=== PATIENT | male | born 1930 | race Caucasian/White ===

== ENCOUNTER 2019-03-06 16:22 | Inpatient (IN) | payer OTHER ==
[~2019-03-06] VITALS: Ht 177.8 cm; Wt 71.8 kg
[2019-03-06 16:24] VITALS: BP 153/68
[2019-03-06] MEDS ORDERED: ZYPREXA2.5 MG PO (16:57)
[2019-03-06] MEDS ORDERED: PROAIR HFA8.5 GM INH (17:00)
[2019-03-06] MEDS ORDERED: TYLENOL PM EX-1 EACH PO (17:00)
[2019-03-06] MEDS ORDERED: COLACE 2-IN-11 EACH PO (17:01)
[2019-03-06] MEDS ORDERED: LASIX 40 MG TAB40 MG PO (17:06)
[2019-03-06] MEDS ORDERED: MELATONIN3 M1 PO (17:07)
[2019-03-06] MEDS ORDERED: METFORMIN HCL500 M3 PO (17:07)
[2019-03-06] MEDS ORDERED: NAPROSYN500 MG PO (17:08)
[2019-03-06] MEDS ORDERED: PROTONIX40 M2 PO (17:08)
[2019-03-06] MEDS ORDERED: MIRALAX119 GM PO (17:08)
[2019-03-06] MEDS ORDERED: RANEXA1000 MG PO (17:09)
[2019-03-06] MEDS ORDERED: ULTRAM 50MG TAB50 MG PO (17:11)
[2019-03-06] MEDS ORDERED: NORVASC 2.5 MG2.5 M1 PO (17:12)
[2019-03-06] MEDS ORDERED: PLAVIX 75 MG TA75 MG PO (17:12)
[2019-03-06] MEDS ORDERED: FOLIC ACID1 MG PO (17:12)
[2019-03-06] MEDS ORDERED: LIPITOR40 MG PO (17:12)
[2019-03-06] MEDS ORDERED: CLARITIN10 M3 PO (17:13)
[2019-03-06] MEDS ORDERED: HYDRALAZINE 10M10 MG PO (17:13)
[2019-03-06 17:37] LABS: HEMATOCRIT 34.5 % (42.0-52.0); HEMOGLOBIN 11.3 gm/dL (14.0-18.0); MCH 32.7 pg (26.0-34.0); MCHC 32.9 g/dL (28.0-37.0); MCV 99.6 fL (80.0-100.0); PLATELET COUNT 215 thou/uL (150-400); RBC 3.47 mil/uL (4.50-6.00); WBC 6.2 thou/uL (4.0-11.0)
[2019-03-06 17:49] LABS: ANION GAP 8 mmol/L (7-16); BUN 37 mg/dL (7-18); CALCIUM 9.4 mg/dL (8.5-10.1); CHLORIDE 102 mmol/L (98-107); CO2 25 mmol/L (21-32); GLUCOSE 152 mg/dL (74-106); POTASSIUM 4.7 mmol/L (3.5-5.1); SODIUM 135 mmol/L (136-145)
[2019-03-06 17:56] LABS: ALBUMIN 4.1 g/dL (3.4-5.0); SALICYLATE < 2.8 mg/dL (2.8-20.0); SGOT 22 U/L (15-37); SGPT 21 U/L (30-65); TOTAL BILIRUBIN 0.5 mg/dL (<0.1-1.0); TOTAL PROTEIN 7.9 g/dL (6.4-8.2)
[2019-03-06 18:02] LABS: ABSOLUTE NEUTROPHILS 4.4 thou/uL (1.4-8.2); ANISOCYTOSIS 1+; POIKILOCYTOSIS 1+
[2019-03-06 18:10] LABS: URINE BILIRUBIN NEGATIVE (Negative); URINE BLOOD NEGATIVE (Negative); URINE CLARITY CLEAR; URINE COLOR YELLOW; URINE GLUCOSE-RANDOM* TRACE (Negative); URINE KETONES NEGATIVE (Negative); URINE LEUKOCYTES-REFLEX NEGATIVE (Negative); URINE NITRITE-REFLEX NEGATIVE (Negative); URINE PROTEIN (DIPSTICK) NEGATIVE (Negative); URINE SPECIFIC GRAVITY 1.025 (1.005-1.035); URINE UROBILINOGEN 0.2 E.U./dl (0.2-1.0)
[2019-03-06 18:18] LABS: AMP/METHAMP Negative (Negative); BARBITURATES Negative (Negative); BENZODIAZEPINES Negative (Negative); COCAINE Negative (Negative); METHADONE Negative (Negative); OPIATES Negative (Negative); PCP Negative (Negative)
[2019-03-06 19:30] VITALS: BP 150/72
[2019-03-06] MEDS ORDERED: TRAZODONE HCL100 MG PO (20:23)
[2019-03-06] MEDS ORDERED: IMDUR 60 MG TAB60 M1 PO (20:23)
--- NOTE | 2019-03-06 21:52 | NUR ---
Patient admitted from [facility] ED via stretcher for eval and tx due to bizarre behaviors, sexually inappropriate, insomnia, and diagnosis of Alzheimer's disease. Patient was residing with his in private home until December 2018. Patient [facility] [place] at that time. Patient's Niya reported that she couldn't take care of patient at home any longer. Patient has difficulty making it to the bathroom and has frequent episodes of incontinence. Patient has been wandering into other resident's rooms, removing clothing, yelling at unseen others. Patient becoming combative when staff attempts to help him dress. Appears that MMSE was completed in which he scored 9/30 and was recently diagnosed with Alzheimers/Dementia. Recommendation from facility noted for him to be placed in a secure unit. Living will and DPOA paperwork in chart. Patient is a DNR. Appears that medications have been recently changed to help patient's insomnia and behaviors but has not been effective. Dr. Taylor notified of admission and orders obtained and noted. Patient was combative when arriving to the unit. Alert and oriented to person only. Unable to state birthdate. Unaware of location, time or situation. Family reports that patient has had multiple falls over the last 30 days. Patient has multiple bruises at different stages of healing located on right buttock/hip, left knee and left side of forehead. Skin shear observed to left forearm. Dressing applied. Order obtained for PT/OT to eval and tx. Family reports that patient has been having difficulty with vision. Reports that he typically wears glasses but they are lost at this time. Patient wears upper and lower dentures which are in at this time. Patient attempted to stand up out of bed with staff present and urinated on the floor. Combative with staff as they were trying to change his clothing and clean him. Patient has disorganized speech, difficulty understanding one step directions. Family reports that patient is hard of hearing and does not have hearing aides at this time. Family denies any recent weight loss. Weight 169# at this time which reports is his usual weight. Patient primarily ambulates with FWW prior to admission. Gait unsteady, balance is poor, patient has poor impulse control. Will provide w/c until PT can eval. Patient took HS medication whole but did attempt to chew most medication and did not comprehend the idea of swallowing medication. Patient has an extensive medical history. Patient provided PRN Zyprexa this evening for patient and staff safety. Patient laying in bed at this time but continues to talk disorganized speech to unseen others. No s/s of pain or discomfort noted.
[2019-03-07 05:58] VITALS: BP 160/60
--- NOTE | 2019-03-07 15:27 | EKG ---
[address] [place] [address] ELECTROCARDIOGRAM REPORT Name: VIVIEN TOM Room #: 523B-B ADM IN M.R.#: [id number] Admission: 03/06/19 Attend Phys: Jerzy Dave DO Discharge: Date of : [birth year] Report #: [id number] THIS REPORT FOR: //name// 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
[2019-03-07 15:36] LABS: CALCIUM 8.7 mg/dL (8.5-10.1); CREATININE 1.7 mg/dL (0.7-1.3); POTASSIUM 4.3 mmol/L (3.5-5.1)
[2019-03-07 15:40] LABS: MAGNESIUM 1.9 mg/dL (1.8-2.4); PHOSPHORUS 3.5 mg/dL (2.5-4.9)
--- NOTE | 2019-03-07 16:59 | NUR ---
SVETLANA met with pt's , daughter, and granddaughter. He currently resides at [facility], and his family would like him to be placed elsewhere for memory care because it is their belief the facility cannot meet their needs; they only have 1-2 staff for 14 patients. They are okay with him being placed in [facility]; he currently sees a doctor at [facility] on the [employer]. SVETLANA reviewed chart and saw that has a financial DPOA and not healthcare. SVETLANA explained that could pose as an issue for placement if the facility wants specifically a healthcare DPOA. Pt's said she understands. The would like him to remain on the [place] side. SW team will continue to follow pt during his stay on this unit.
--- NOTE | 2019-03-07 18:09 | NUR ---
[facility] THIS AM BUT SLEPT ALMOST ENTIRE TIME-,GRANDAUGHTER AND DAUGHTER AT BEDSIDE DURING AM VISITING AND DID CONVERSE WITH THEN 1-2 WORD RESPONSES OTHERSWISE MINIMAL NO VERBAL INTERACTION WITH STAFF-KEEPS EYES TIGHTLY CLOSED AND WHEN TOUCHED OR REPOSITIONED WILL STRIKE OUT OR YELL OUT. IS ABLE TO STATE HIS FIRST NAME WHEN PROMPTED OTHERWISE OFFERS NO RESPONSES TO QUESTIONS ASKED. TAKES MEDS CRUSHED AND IN PUDDING OR YOGURT-UNABLE TO CRUSH CARDIAC MEDS IMDUR AND RANOLIZNE AND APPEARED TO SWALLOW ALL THIS AM-LATER FOUND 1 RANOLAZINE PILL IN BEDDING. INCONTINENT OF LARGE AMOUNT OF URINE ON FLOOR NEXT TO BED-ALSO INCONTINENT OF URINE IN BRIEF AND REMOVED BRIEF AND PJ BOTTOMS. EKG COMPLETED PER MD ORDER RESULTS CALLED TO DR. KUN DANG GENERATOR REBUILDER AND SEEN BY DR. RAMIREZ WHILE ROUNDING ON PT. DPOA CONTACTED ON DNR STATUS CONFIRMED BY MD. COLOR PALE-SKIN WARM AND DRY-IS RESPONSIVE TO VERBAL STIMULI HOWEVER REMAINS LETHARGIC. BP 136/60 P 70 02 SAT 95 PERCENT
--- NOTE | 2019-03-07 18:54 | NUR ---
DID SIT UP IN BED FOR THIS RN-ALLOW VS TO BE TAKEN AFTER SOME INITAL SWEARING AND STRIKING OUT BP 137/55 P 61 R-14 02 SAT 95 PERCENT ON RA. TOOK APPROX 2 CONTAINERS OF YOGURT AND 1 CONTAINER OF ICE CREAM ALONG WITH APPROX 250 CC WATER WITH MUCH PROMPTING/ENCOURAGEMENT. DID OPEN EYES X1 DURING 40 MINUTE INTERACTION- WHEN ASKED ABOUT PAIN NOTED TO BE GRIMACING WITH MOVEMENT STATES "MY HIP" HOWEVER DOES NOT RESPOND AGAIN WHEN ASKED WHICH HIP OR TO RATE PAIN. TYLENOL 650MG PO PRN FOR ABOVE REPORTD AT 1845
[2019-03-07 20:09] VITALS: BP 136/53
--- NOTE | 2019-03-08 04:37 | NUR ---
ASSUMED CARE ON 03/07/19 @ 19:15. IN BED AWAKENS TO VOICE, COOPERATED WITH ASSESSMENT AND VS. HRRR, S1S2 NOTED, LUNGS CTA, ABD N X 4 Q. INCONTINENT OF URINE, CUSSING AND SOME STRIKING OUT WITH FIST WHEN GIVEN INCONTINENT CARE X 2 STAFF. SHEETS & BEDDING CHANGED. AFTER CLEAN AND DRY IN CLEAN SHEETS, CALMED DOWN AND RETURNED TO SLEEP. BED IN LOW POSITION, BED ALARM SET, WILL CONTINUE TO MONITOR Q 12 MINUTES FOR PATIENT SAFETY.
--- NOTE | 2019-03-08 06:30 | NUR ---
SLEPT 8 HOURS
[2019-03-08 06:38] VITALS: BP 136/53
[2019-03-08 09:06] VITALS: BP 145/89
--- NOTE | 2019-03-08 09:17 | NUR ---
SW called and left a VM to complete the admissions intake
[2019-03-08 11:54] VITALS: BP 145/89
--- NOTE | 2019-03-08 13:22 | NUR ---
PT NOT APPROPRIATE FOR P.T. EVAL AT THIS TIME. DR. TRISTAN INDICATED PLAN TO CX P.T. ORDER IN PT'S EMR.
--- NOTE | 2019-03-08 15:34 | NUR ---
ASSUMED CARE AT 0700 THIS MORNING. PT. UP IN W/C. PT. LOWERED HIMSELF TO THE FLOOR AND WAS CRAWLING ON THE FLOOR. STAFF GOT RECLINING CHAIR AND PUT PT. IN IT. PT. HAD 2 VISITORS THIS MORNING. HE C/O OF BEING COLD. HE WAS COVERED WITH A BLANKET. AT LUNCH, HE WAS NOTED TO HAVE A LARGE BM AND HAD IT ALL OVER THE CHAIR. STAFF TOOK HIM TO THE SHOWER ROOM AND SHOWERED HIM DOWN. IT WAS ALSO DISCOVERED THAT THERE WAS BM ON HIS BEDROOM CASPER. STAFF AND HOUSEKEEPING CLEANED THAT UP WELL. HE WAS TAKEN TO THE DINING ROOM AFTER SHOWER AND DRESSED. HE TOOK HIS MEDICATIONS CRUSHED AND IN APPLESAUSE.
[2019-03-08 19:15] VITALS: BP 148/61
--- NOTE | 2019-03-09 00:52 | H ---
[facility] [place] [address] HISTORY AND PHYSICAL Name: VIVIEN TOM Room #: 523B-B ADM IN M.R.#: [id number] Admission: 03/06/19 Attend Phys: Jerzy Dave DO Discharge: Date of : [birth year] Report #: [id number] THIS REPORT FOR: //name// CC: Jerzy Dave [facility] unknown DATE OF SERVICE: 03/06/2019 INPATIENT PSYCHIATRIC EVALUATION ATTENDING PHYSICIAN: Jerzy Dave DO MEDICAL CONSULTANTS: Jerzy Limon MD and Sheila Britton APRN. REASON FOR ADMISSION: Apparently residing at [facility] and recent behaviors of throwing himself on the floor, refuses to stand up, gets naked and holds his penis in hand, asked women if they want some. He has been urinating in his room inappropriately and he does not sleep at night. SOURCES OF INFORMATION: skilled nursing notes, ER notes, my exam. HISTORY OF PRESENT ILLNESS: This is an 89-year-old male with known history of Alzheimer's disease, numerous medical comorbidities including angina, stroke, hyperlipidemia, visual or hearing impairment, was sent to the Emergency Room initially for medical clearance at [facility]. The patient is coming today and seen in the ED. The patient was diagnosed with dementia on 03/03/2018, increased behaviors in the last year. Facility notes as stated in the chief complaint, he has been running around naked, urinating in inappropriate places and inappropriate with staff and the patients. Family reports he has been falling more frequently, multiple hematomas on his head, for which he has never been seen or evaluated for and also reported vision changes secondary to fall. The patient was started on olanzapine 2.5 mg. BRIEF PAST MEDICAL HISTORY: Includes diabetes mellitus, pulmonary embolism, stroke in February 2003, [place] in 1992. PAST SURGICAL HISTORY: Includes stent placement, I believe that is cardiac. The usp has been in [place], [place]. The patient is on Plavix for the PE. REPORTED MEDICATIONS: Include olanzapine, acetaminophen, albuterol, sennosides, furosemide, melatonin, naproxen, pantoprazole, polyethylene glycol, amlodipine besylate, clopidogrel, bisulfate, atorvastatin, folic acid, loratadine, Ranexa, hydralazine, trazodone, isosorbide mononitrate. CURRENT MEDICATIONS IN THE HOSPITAL: He is looking over sedated this morning, [facility] [address] [place] [address] HISTORY AND PHYSICAL Name: VIVIEN TOM Room #: 523B-B ADM IN .R.#: [id number] Admission: 03/06/19 Attend Phys: Jerzy Dave DO Discharge: Date of : [birth year] Report #: [id number] Taylor put him on olanzapine 2.5 mg with dinner, loratadine 10 mg daily, Imdur 60 mg p.o. daily, folic acid 1 mg p.o. daily, Plavix 75 mg p.o. daily, amlodipine besylate 10 mg p.o. daily, ranolazine 1000 mg p.o. b.i.d. with meals, Protonix 40 mg p.o. daily. He got several p.r.n. lorazepam, hydralazine 10 mg t.i.d., trazodone 100 mg p.o. at bedtime, naproxen, melatonin, looks like it is diphenhydramine on there, so he is on several [place] meds, so at this point we will definitely discontinue the diphenhydramine, the olanzapine, the naproxen and attempted to try him on some scheduled Haldol. ALLERGIES: EZETIMIBE, HYDROCODONE, CARISOPRODOL. SOCIAL HISTORY: Unknown tobacco, alcohol or recreational drug use history. REVIEW OF SYSTEMS: This morning, the patient was essentially nonverbal with me, only responded to painful stimuli, PHYSICAL EXAMINATION VITAL SIGNS: Currently, pulse 77, BP 160/60 in the left arm. In the ER, he was afebrile. Additional information from my examination, the patient is not ambulatory, lying in bed naked home inside and gurney at times. LABORATORY DATA: From the ER CBC: H and H is 11.3 and 34.5, white count 6.2, platelets 215. Chemistries: Sodium 135, potassium 4.7, chloride 102, bicarbonate 25, anion gap 8, BUN 37, creatinine 3.0, estimated GFR 32, glucose 152, calcium 9.4, total bilirubin 0.5, AST 22, ALT 21, alkaline phosphatase 103, total protein 7.9, albumin 4.1. Urinalysis was within normal limits except trace glucose. Toxicology: Salicylate is less than 2.8, acetaminophen less than 2. Alcohol less than 10. Urine drug screen was completely negative including marijuana. No imaging was done. Also, I forgot to review earlier if an EKG was done in the ER, so they want me to look at that now. It looks like it has not been, so we will go ahead and order one. MENTAL STATUS EXAMINATION: This is a well-developed, ill, disheveled, likely edentulous male, lying in bed. Attention fair. Concentration impaired. Speech grooming at this time. Thought process, unable to assess. Thought content, similarly absent. No psychomotor agitation, no psychomotor retardation. Unable to question for SI, HI, auditory, visual or tactile hallucinations. Memory grossly impaired by history. Insight impaired, judgment impaired. Fund of knowledge well below average. FORMULATION: An 89-year-old male sent to us from the [facility] in [place], [place]. The patient is having behavioral problems in [facility] [address] [place] [address] HISTORY AND PHYSICAL Name: VIVIEN TOM Room #: 523B-B ADM IN .R.#: [id number] Admission: 03/06/19 Attend Phys: Jerzy Dave DO Discharge: Date of : [birth year] Report #: [id number] the context of dementia. 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 The patient has numerous medical comorbidities at this point. This includes coronary artery disease, status post stent placement, stroke in February 2003, poor right eye vision, diabetes mellitus, history of blood clot, status post IVC filter placement and history of myocardial infarction in 1992. His emergency contact is Niya Tom [phone], I will try and check-in with her later today. I believe she is the spouse. She is in [place], [place]. Most of the other ones are the nursing notes showing the ongoing behavioral problems dating back to January 2017 after double check if he has had past psychiatric admissions. Plan will be to evaluate, stabilize and obtain collateral. ESTIMATED LENGTH OF STAY: 10-14 days. I believe his is his DPOA but I will need to check more extensively on labs. Also, there are some notes. It looks like he had a [facility] evaluation in the recent past. FAMILY HISTORY: Hypertension in father, heart attack in father, coronary artery disease in father, heart failure in mother, heart attack in mother, coronary artery disease in mother, heart attack in brother. Mother had onset of coronary artery disease at age 90. It looks like in 12/07/2018, he had a cardiovascular consultation with nurse practitioner at [facility], actually we have some history of the ER I got from. STRENGTHS: He is insured. He has family support. WEAKNESSES: He has an advanced dementia, multiple comorbidities, and poor life expectancy at this point. Time spent on interview, evaluation, review of records, coordination of care is 49 minutes. <ELECTRONICALLY SIGNED> By: Jerzy Dave DO 03/09/19 0052 [id number] Jerzy Dave DO /nt
--- NOTE | 2019-03-09 02:31 | NUR ---
Patient attempting to climb out of bed around 0100. Patient offered toileting, water, re-positioning. None of which were effective. Patient cursing and swinging toward staff. Removing clothing. Patient assisted to recliner and monitored in dayroom. Staff remained with patient to ensure safety. This appeared to cause more agitation and anxiety to patient. Patient attempting to slide out of chair, removing socks, pulling on clothing, tore his t-shirt. Offered activity apron which patient threw at nurse. Patient required to be re-positioned several times in recliner. Patient becoming more and more agitated. Grabbing, scratching, kicking, hitting, cursing, yelling. Nurse administered Geodon IM due to increase in agitation when all other interventions failed to be effective.
--- NOTE | 2019-03-09 04:08 | NUR ---
ASSUMED CARE OF PATIENT ON 03/08/19 AT APPROXIMATELY 1915, AT THE BEGINNING OF THE SHIFT PATIENT WAS CALM AND COOPERATIVE WITH STAFF, EASILY FOLLOWING DIRECTIONS AND BEING MED COMPLIANT. HE DID APPEAR WITH A TENSE AFFECT AND LABILE MOOD BUT EASILY REDIRECTABLE. THROUGHOUT THE EVENING HE ALERTED STAFF TO HIS ROOM VIA BED ALARM AND BECAME COMBATIVE YELLING OBSCENITIES AT STAFF, ATTEMPTING TO HIT STAFF WHILE CHANGING PATIENTS POSITION FOR COMFORT. THIS EFFORT FAILED AND PATIENT WAS MOVED TO THE DAY ROOM IN A RECLINER TO WHICH HE CONTINUED TO RIP A PART A TSHIRT AND BEING UNCONTROLLED. GEODON IM GIVEN ORDERED. PATIENT THEN FOLLOWED UP BY DISROBING AND URINATING ON THE CHAIR AND ON THE FLOOR. STAFF CLEANED UP PATIENT AND BROUGHT HIM A NEW SET OFF CLOTHING. HE APPEARS WITH A MORE RELAXED AFFECT AT THIS TIME AND IS FOLLOWING DIRECTIONS. HE DOES NOT APPEAR TO BE IN MEDICAL DISTRESS, NURSING WILL MAINTAIN ALL PRECAUTIONS TO ENSURE SAFETY AT ALL TIMES.
--- NOTE | 2019-03-09 06:14 | NUR ---
PATIENT SPIT OUt medication in AM Med pass, refusing taking meds states I want when ill talk it- if and then if i take out. Will continue to monitor.
--- NOTE | 2019-03-09 07:10 | NUR ---
Patient has been sitting in recliner with nurse most of the shift. Patient has torn 2 different shirts, grabbed and scratched nurse while being re-positioned. Cursing, yelling. Kicking, picking and pulling at his fingernails and toenails. Pulling inappropriately on genitals. Disrobing. Dr. Dave notified. Order obtained for Thorazine 25mg IM 1x dose now.
[2019-03-09 07:30] VITALS: BP 115/64
--- NOTE | 2019-03-09 07:35 | NUR ---
DR. TRISTAN STATED THAT PATIENT IS NOT APPROPRIATE FOR O.T. AND P.T. AND THAT HE WOULD WRITE DISCHARGE ORDERS FOR THESE THERAPIES.
[2019-03-09 11:45] VITALS: BP 115/64
--- NOTE | 2019-03-09 11:47 | NUR ---
Nutrition: Per team meeting, pt with multiple meal refusals since admit 03/06, but ate 100% breakfast this am being fed. Having difficulty feeding self per nsg due to decreased hand/eye coordination. Team meeting suggested finger foods however nsg does not feel this will assist. Pt combative and with inappropriate behaviors so did not visit. No weight hx. Will offer ensure BID after discussion with RN and rec continued feeding assistance at meals.
--- NOTE | 2019-03-09 12:29 | NUR ---
ASSUMED CARE AT 0700 THIS MORNING. PT. UP IN RECLINING CHAIR, YELLING OUT, CURSING OBSCENITIES AT WHOM EVER COMES BY. NIGHT NURSE CALLED DR. TRISTAN FOR MEDICATION ORDER FOR PT. ORDER RECEIVED FOR PT. TO GET CHLORPROMAZINE 25 IM STAT. IM GIVEN. PT. WAS IN CHAIR TEARING THROUGH YELLOW JESSI SHIRT HE HAS ON. PT. NOT ORIENTED TIMES 4. AFTER ABOUT AN HOUR PASSED, PT. DID SLOW DOWN BUT CONTINUES TO BE A BIT IRRITATED. HE IS NOT EATING OR DRINKING MUCH. DIETITION TALKED ABOUT HIM AND STATED SHE WOULD SEND SUPPLEMENTS TO HIM FOR MEALS. WILL SEE IF THE PT. WILL TAKE IN THIS.
[2019-03-09 19:37] VITALS: BP 108/59
[2019-03-09 21:00] VITALS: BP 110/60
--- NOTE | 2019-03-10 03:55 | NUR ---
ASSESSMENT: PT WAS IN THE DAYROOM IN THE CHAIR AT THE BEGINNING OF THE SHIFT. DENIES PAIN. ALERT TO PERSON, NOT SITUATION NOR TIME. REMAIN SAFE WITH NO FALLS. VSS, AFEBRILE. BED ALARM SET. SLO PROGRESS TOWARDS DC GOALS, WILL CONTINUE TO MONITOR.
[2019-03-10 05:38] VITALS: BP 131/78
[2019-03-10 05:42] VITALS: BP 131/78
[2019-03-10 06:49] LABS: HEMATOCRIT 35.5 % (42.0-52.0); HEMOGLOBIN 11.8 gm/dL (14.0-18.0); MCH 32.9 pg (26.0-34.0); MCHC 33.1 g/dL (28.0-37.0); MCV 99.4 fL (80.0-100.0); PLATELET COUNT 220 thou/uL (150-400); RBC 3.58 mil/uL (4.50-6.00); RDW 15.3 % (10.5-14.5); WBC 9.1 thou/uL (4.0-11.0)
[2019-03-10 07:15] LABS: ALBUMIN 3.9 g/dL (3.4-5.0); CALCIUM 9.9 mg/dL (8.5-10.1); CREATININE 2.3 mg/dL (0.7-1.3); MAGNESIUM 2.1 mg/dL (1.8-2.4); POTASSIUM 4.2 mmol/L (3.5-5.1); TOTAL PROTEIN 7.3 g/dL (6.4-8.2)
[2019-03-10 07:36] LABS: ABSOLUTE NEUTROPHILS 6.6 thou/uL (1.4-8.2); PLATELET ESTIMATE NORMAL; SCHISTOCYTES 1+
[2019-03-10 07:55] VITALS: BP 111/60
[2019-03-10 11:42] VITALS: BP 115/64
--- NOTE | 2019-03-10 15:23 | NUR ---
PATIENT HAS BEEN UP AND OUT ON THE UNIT SITING IN A RECLINER. FORGETFUL, CONFUSED. PATIENT IS DISORGANIZED, SPEECH IS RAMBLED AT TIMES. PATIENT TAKES OFF YELLOW SOCKS, ARMBAND, AND FALL RISK BAND. PATIENT REQUIRES ASSIST OF STAFF TO FEED, AND TO COMPLETE ADL. HE IS A TOTAL CARE, INCONTINENT CARE PROVIDED BY STAFF. PATIENT CONSTANTLY SLIDING OUT OF GERICHAIR, REQUIRES CONSTANT REDIRECTION. MOOD IS DEPRESSED, AFFACT IS FLAT, LABILE. PATIENT TOOK ALL MEDICATION CRUSHED IN PUDDING WITHOUT DIFFICULTY. BLOOD PRESSURE MEDICATION HELD DUE TO LOW BLOOD PRESSURE, DR. WARE NOTIFIED. PATIENT IS EAING ABOUT 50-75% MEALS, NO SIGN OF ACUTE DISTRESS NOTD AT THIS TIME. PATIENT DENIES SUICIDAL/HOMICIDAL IDEATION, UNABLE TO APPROPRIATELY RESPOND TO FURHER ASSESSMENT QUESTIONS DUE TO CONFUSION. WILL CONTINUE TO REDIRECT, AND MONITOR FOR SAFETY.
--- NOTE | 2019-03-10 15:47 | NUR ---
Sw completed a chart review and witnessed pt briefly in the dining area. Pt is not ready to d/c. Pt is still requiring a lap pepper, he is difficult tto redirect and is continuously undressing. Family meeting is tomorrow to discuss other placement options.
[2019-03-10 19:30] VITALS: BP 137/73
--- NOTE | 2019-03-11 00:24 | NUR ---
ASSUMED CARE OF PATIENT ON 03/10/19 AT APPROXIMATELY 1915. PATIENT IS ALERT AND ORIENTED X1, PATIENT CAN BE COMBATIVE AT TIMES WHEN COMPLETING ADLS. HE WOULD YELL AT TIMES AT THIS NURSE WHEN ASKING SIMPLE QUESTIONS OR TO FOLLOW SIMPLE COMMANDS. HE APPEARS WITH A TENSE AFFECT, DOES DENY SI HI. ONLY ASSESSMENT QUESTIONS PATIENT WILL ANSWER. HE DID NOT APPEAR TO BE IN MEDICAL DISTRESS. NURSING WILL MAINTAIN ALL PRECAUTIONS TO ENSURE SAFETY AT ALL TIMES.
[2019-03-11 07:55] VITALS: BP 138/66
--- NOTE | 2019-03-11 12:28 | NUR ---
Date of Admission: 03/06/19 Date of Activity Therapy Assessment: 03/09/19 Activity Goal: Increase engagement Initial Goal: 1 Individual activity/day Weekly progress towards goal: Did not achieve goals Group participation level: Minimal Behaviors observed: Patient has not tolerated 1:1 visits. He has however been present (passively) within the milieu during groups. He continues to yell out at times, but the vulgarity has improved. Plan: No change towards goal
--- NOTE | 2019-03-11 13:40 | NUR ---
SVETLANA met with Dr cage and family to discuss the d/c plans. it is established that the referral should be sent to [facility]. SW provided family with a list of placement options in [place] that would accomodate this pt's memory care LTC needs. Family will be calling and visiting these places. Weekend Sw is aware that family will be calling and visiting this weekend and will provide her with a few choices , at this time the weekend SW will send referral packets. Family asked that this handbook writer call [facility] on Thursday after they have picke dup his personal items.
--- NOTE | 2019-03-11 16:24 | NUR ---
NEEDED SEVERAL DIFFERENT ATTEMPTS TO GET AM MEDICATIONS THAT ARE UNABLE TO BE CRUSHED DOWN. HE WOULD SPIT OUT PILL REPEATDLY AND THEN COSE MOUTH TIGHTLY-CRUSHED MEDS GIVEN WITHOUT DIFFICULTY-DID EVENTUALLY APPEAR TO SWALLOW ALL. GIVEN SHOWER,SHAMPOO AND SHAVE THIS AM AND WAS ABLE TO STAND AND WALK SHORT DISTANCE IN HALLWAY-APPROX 25 FEET WITH ASSIST OF TWO-EASILY FATIGUED AND NOTED TO HAVE DIFFICULTY MOVING LEFT LEG HE WOULD DRAG LEG BEHIND. DID FOLLOW VERBAL INSTRUCTIONS FROM STAFF AND NO PHYSICAL OR VERBAL AGGRESSION DURING CARES-IS NOTED TO HAVE SEVERAL BRUISES FROM PREVIOUS FALLS AT [facility] BUT NO NEW WOUNDS NOTED. ORIENTED TO NAME ONLY-AT BEGINNING OF SHIFT WOULD GRAB OUT AT PEOPLE WALKING BY TELLING THEM HE NEEDS TO GO BUT WAS EASILY REDIRECTED. GRIMACES AND WINCES WITH MOVEMENT AND DOES STIP HIP "HURTS A LITTLE" TYLENOL 650MG GIVEN PO PRN AT APPROX 1330-HAS BEEN RESTING INTERMITENTLY IN [facility] SINCE APPROX 1400.
[2019-03-11 19:44] VITALS: BP 96/66
[2019-03-11 21:29] VITALS: BP 96/66
--- NOTE | 2019-03-12 02:43 | NUR ---
1840 RESUMMED CARE FROM DAY SHIFT, PATIENT WAS IN BED SLEEPING. PATIENT WAS AGITATED WHEN I WOKE HIM TO TAKE MEDICATION. I HAD ANOTHER NURSE ASSIST ME IN GIVING MEDICATION. PATIENT WENT BACK TO SLEEP, WILL CONTINUE TO MONITOR PATIENT FOR BEHAVIORS AND SAFETY.
[2019-03-12 06:25] LABS: CALCIUM 9.7 mg/dL (8.5-10.1); CREATININE 1.7 mg/dL (0.7-1.3); POTASSIUM 3.6 mmol/L (3.5-5.1)
[2019-03-12 09:45] VITALS: BP 150/73
--- NOTE | 2019-03-12 18:19 | NUR ---
Assumed patient care at 0715. Vital signs have been stable. Patient has been sexually inappropriate, physically and verbally aggressive and very agitated at times. Patient grabbed this nurse's left wrist, causing temporary redness, small abrasion and pain. Patient refused all po medications. He complained of bilateral leg pain, was given crushed Acetaminophen 650mg in grape jelly. He spit it out. He was given Chlorpromazine 25mg/1ML IM in left deltoid at 1307. Medication was mildly effective. He was given his scheduled 1500 po dose, crushed in applesauce. Some decrease in aggression and agitation noted after IM dose and po dose of Chlorpromazine. 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 Patient continues to be a fall risk. Will report to on-coming nurse.
[2019-03-12 19:34] VITALS: BP 130/71
--- NOTE | 2019-03-13 04:08 | NUR ---
Assumed care of patient @ 1900. Pt slightly agitated most of early in shift. Pt took medications mostly dissolved in thickened tea without difficulty. VSWNL. Health assessment with no abnormalities at present time. Pt spent most of early part of shift in recliner in dayroom. Was assisted into bed around 2200 et is currently resting in bed with eyes closed. Will continue to monitor per protocol.
[2019-03-13 09:25] VITALS: BP 155/75
--- NOTE | 2019-03-13 13:39 | NUR ---
PT. WAS LAYED DOWN FOR NAP. HE CRAWLED OUT OF BED AND ONTO THE FLOOR. WHILE CRAWLING HE SPLIT HIS LEFT FOREARM OPEN IN ONE SPOT NEAR WRIST. AREA CLEANSED WITH N.S. AND WRAPPED WITH A ABD PAD AND GAUZE. WILL INFORM PATIENT'S NURSE.
[2019-03-13 14:12] VITALS: BP 126/74
--- NOTE | 2019-03-13 15:41 | NUR ---
PT A&O TO SELF, VSS. UNABLE TO ACCESS SI/HI. PATIENT HAS LAP BELT AND HAS BEEN YELLING WANTED TO GET OUT OF CHAIR THROUGHOUT DAY. PATIENT HAS FLAT AFFECT, HAS BEEN YELLING OBSCENITIES. PATIENT WAS PLACED IN ROOM TODAY AND WAS LATER FOUND ON FLOOR, VITALS TAKEN AND STABLE. PATIENT WILL TAKE MEDS CRUSHED. PATIENT ATE BREAKFAST AND REFUSED LUNCH. PATIENT HAS SKIN TEAR TO RIGHT FA, SALINE CLEANED, BOARDER FOAM AND KERLIX PLACED. PATIENT WILL NOT ANSWER QUESTIONS. WILL CONTINUE TO MONITOR.
[2019-03-13 17:42] VITALS: BP 126/74
--- NOTE | 2019-03-14 04:18 | NUR ---
Assumed care of pt @ 1900. Pt greatly agitated at beginning of shift possibly due to all of the patients in the dayroom watching the game. Pt kept sliding down in recliner so that the lap pepper was near his shoulders et had to be assisted into a sitting position several times. Pt took medications dissolved in thickened apple juice without difficulty. VSWNL. Currently resting in bed with eyes closed. Will continue to monitor per protocol.
[2019-03-14 07:51] VITALS: BP 153/52
--- NOTE | 2019-03-14 12:10 | NUR ---
AM MEDICATION CRUSHED AND PUT WITH ICE CREAM AND DID TAKE 2 BITES BEFORE HE BEGAN SPITTING ON TABLE AND AT THIS NURSE SHOUTING "NO I DONT WANT IT-GET AWAY FROM ME" DISTRESSED FACIAL EXPRESSION AND GRIMACES WITH MOVEMEMENT-YELLS OUT WITH MOVEMENT-REPORTS HAVING NECK PAIN AND SITTING CHIN TO CHEST WHEN ASSISTED TO SIT BACK IN CHAIR STATES IT HURTS TO MOVE HEAD BACK-MD NOTIFIED OF MED REFUSAL IN ADDITION TO DROOLING,STIFF NECK AND O RECEIVED FOR COGENTIN 1MG IM-REPOSITIONED IN GERICHAIR FOR COMFORT AND ASSISTED TO ROOM IN ATTEMPT TO USE URINAL WAS HYELLING OUT/PINCHING AND GRABBING STAFF THROUGHOUT ALL CARES AND ATTEMPTS TO PROVIDE COMFORT. GEODON 10MG GIVEN IM IN RIGHT DELTOID.
--- NOTE | 2019-03-14 14:41 | NUR ---
SVETLANA was approached by iNya who said she would like a referral sent to [facility]. She said she did not know what else she could choose because so many of her options have long waiting lists. SVETLANA talked with Niya about [facility]; a small [facility] that only accepts 8 pts so that pt can get more attention. SVETLANA gave Niya a brochure and together they spoke with Martha. SVETLANA provided Martha some info about pt. Martha asked that she fax a referral to [phone]. SVETLANA contacted [facility] and got the fax number of [phone]. SVETLANA faxed referrals to both locations. SVETLANA team will continue to follow pt during his stay on this unit.
[2019-03-14 16:04] LABS: CALCIUM 9.1 mg/dL (8.5-10.1); CREATININE 1.8 mg/dL (0.7-1.3)
[2019-03-14 20:17] VITALS: BP 166/65
--- NOTE | 2019-03-15 00:53 | NUR ---
ASSUMED CARE ON 03/14/19 @ 19:15, IN BED EYES CLOSED, RESPIRATIONS EVEN AND UNLABORED. TOOK MEDS CRUSHED IN PUDDING. DRANK NECTAR THICKENED LIQUID AND ALLOWED SELF TO BE REDRESSED IN GOWN. FED APPLESAUCE AND VANILLA PUDDING. TALKING ABOUT VARIOUS MEMORIES UNRELATED TO PRESENT REALITY. BED IN LOW POSITION, BED ALARM SET, WILL CONTINUE TO MONITOR.
[2019-03-15 02:42] VITALS: BP 166/65
--- NOTE | 2019-03-15 05:56 | NUR ---
SLEPT 3.2 HOURS
[2019-03-15 09:40] VITALS: BP 163/73
--- NOTE | 2019-03-15 16:00 | NUR ---
HAS BEEN IN [facility] MAJORITY OF SHIFT-PLACED IN BED BRIEFLY BUT OBSERVED TO BECOME MORE RESTLESS AND UNCOMFORTABLE-ATTEMPTING TO CRAWL OVER SIDERAILS AND YELLING OUT CONSTANTLY SO PLACED BACK IN [facility] AND WITHIN SITE OF NURSES STATION TO ALLOW CONSTANT OBSERVATION. SKIN TEAR TO LEFT FOREARM CLEANSED WITH WOUND BUSINESS CONTINUITY PLANNING DIRECTOR AND OPTIFOAM APPLIED. GIVEN ALL MEDS CRUSHED IN PUDDING,FLUIDS,ETC-AT TIMES WILL TAKE WITH MUCH COAXING BUT THEN BEGINS TO SPIT OUT. WILL NAP ON/OFF IN SHORT INTERVALS IN RECLINER-WHEN AWAKE OBSERVED TO BE RESTLESS,FACIAL GRIMACING, SCREAMING OUT WITH MOVEMENT OR REPOSITIONING. WILL YELL OUT "IT HURTS" "ITS KILLING ME" "MY BACK IS BREAKING" ETC. DID TAKE SOME OF LUNCH WHEN FED BUT AFTER SHORT TIME BEGINS TO SPIT FOOD OUT. INCONT OF URINE-PERINEAL CARE PROVIDED REQUIRES 2-3 STAFF D/T COMBATIVE BEHAVIOR WITH CARES. MD NOTIFIED OF ABOVE AND COMFORT CARE ORDERS RECEIVED
[2019-03-15 19:38] VITALS: BP 147/71
--- NOTE | 2019-03-15 19:43 | NUR ---
PATIENT YELLING OUT ON UNIT, SCREAMING 'IM FUCKING HURTING HELP ME.' FACIAL GRIMACING EVIDENT. ASSESSED PAIN USING PEREZ LYNCH PAIN 10/10. 10MG ROXANOL ADMINISTERED ORDERED. WILL CONTINUE TO MONITOR.
--- NOTE | 2019-03-15 20:57 | NUR ---
PATIENT IN RECLINER, RR 14 APPEARS UNLABORED AT THIS TIME, PT APPEARS SEDATED AND WILL AWAKE TO TAKE MEDICATIONS. WILL CONTINUE TO MONITOR.
--- NOTE | 2019-03-15 21:45 | NUR ---
PATIENT OBSERVED THRASHING AROUND IN BED YELLING 'MY BACK HURTS HELP ME.' NURSING REPOSITIONED PATIENT TO NO POSITIVE RESULTS. PATIENT WAS ABLE TO VERBALIZE PAIN SCORE OF 10/10. ADMINISTERED MORPHINE ORDERED FOR PAIN 9-10. PATIENT THEN BEGAN TO BECOME AGGRESSIVE AND GRABBED THIS NURSES HAND EXTREMELY HARD, PATIENT APPEARS AGITATED. WILL CONTINUE TO MONITOR AND ADMINISTER ATIVAN INTENSOL ORDERED, WHEN AVAILABLE BY PHARMACY.
--- NOTE | 2019-03-15 22:07 | NUR ---
ATIVAN INTENSOL GIVEN FOR ANXIETY EVIDENCED BY PATIENT UNABLE TO LAY STILL APPEARS WITH A TENSE AFFECT. WILL CONTINUE TO MONITOR.
--- NOTE | 2019-03-15 22:53 | NUR ---
PATIENT CONTINUED TO FLAIL IN BED, YELLING OUT, AND APPEARING AGITATED. GEODON 10MG IM GIVEN ORDERED.
--- NOTE | 2019-03-16 00:25 | NUR ---
PATIENT CONTINUES TO BE COMBATIVE WITH STAFF WHILE ADMINISTERING COMFORT CARE MEDICATIONS, DISCUSSED SITUATION WITH CAMI KEARNS GREENHOUSE TECHNICIAN, ORDERS FOR HALDOL 5MG IM X1. WILL CONTINUE TO MONITOR.
--- NOTE | 2019-03-16 01:10 | NUR ---
PATIENT CONTINUES TO FACIAL GRIMACE, C/O BACK AND GRABBING KNEE AND GRIMACING WIDE. PATIENT DOES ACKNOWLEDGE HE IS IN PAIN. WILL ADMINISTER MORPHINE ORDERED.
--- NOTE | 2019-03-16 04:52 | NUR ---
ASSUMED CARE OF PATIENT ON 03/15/19 AT 1915, PT HAS BEEN IN BED MOST OF THE EVENING, HE HAS BEEN RESTLESS AND HAS BEEN CONTINUOUSLY GRIMACING IN PAIN, PLEASE SEE PREVIOUS NURSES NOTES RELATED TO MEDICATION ADMINISTRATION. HE RESPONDS IN ONE WORDED STATEMENTS, SUCH 'YES' '10' AND FOLLOWS SIMPLE COMMANDS. RR HAVE BEEN ~14/MIN. PAIN MANAGEMENT AND ANXIETY WERE THE FOCUS OF CARE OF THE EVENING. CURRENTLY PATIENT IN BED WITH EYES CLOSED, MOUTH OPEN. HE APPEARS BUTLER AND ASHEN. WILL CONTINUE TO MONITOR AND CONTROL PAIN AND ANXIETY PRN NEEDED.
[2019-03-16 09:04] VITALS: BP 131/59
--- NOTE | 2019-03-16 09:27 | NUR ---
Sherri cpompleted a chart review and the Dr recomendation for hospice at d/c. Sherri called the referrals that were sent on Thursday and [facility] is coming out today to complete an assessment, [facility] does not have any LTC beds available. Sherri also sent the referral and a VM to [facility].
--- NOTE | 2019-03-16 11:54 | NUR ---
Follow up: palliative, end of life measures being implemented, Defer further nutrition assessment
--- NOTE | 2019-03-16 20:07 | NUR ---
TOMAS CONTACTED AT 0730 REGARDING PT CONDITION AND HAS BEEN AT BEDSIDE SINCE APPROX 0930. PT HAS BEEN MINIMALLY RESPONSIVE THIS SHIFT-RESPONDS TO PAINFUL STIMULI AND MOANED SOFTLY 1-2 TIMES DURING REPOSITIONING. NO URINE OUTPUT THROUGHOUT SHIFT. ORAL CARE Q 1-2 HOURS TONGUE IS NOTED TO BE DRY AND CRACKED. SOME MOTTELING TO LOWER EXTREMETIES. REPOSITIONED Q 2 HOURS. IS NOTED TO HAVE OCCASSIONAL COUGH AND UPPER AIRWAY THROAT CONGESTION AND GURGLING-ATROPINE 2 DROPS SL AT APPROX 1800. VS HAVE BEEN STABLE THROUGHT [id number] SAT 89 PERCENT AT 0900-DROPPED TO 84 PERCENT AT APPROX 1630-FAMILY INFORMED OF ABOVE AND REQUESTED 02-DR. TRISTAN CONTACTED AND O RECEIVED-O2 PLACED AT 2 LITERS PER NC.TYLENOL SUPPOSITORY RECTALLY AT APPROX. 1735 FOR GENERAL DISCOMFORT- REPORTING "FEELS WARM" UNABLE TO OBTAIN TEMP ORALLY AXILLARY TEMP 98.7. MS 5MG GIVEN ORALLY AT APPROX 1700 FOR SOME FACIAL GRIMACING WITH REPOSITIONING.
[2019-03-17 04:00] VITALS: BP 214/103
--- NOTE | 2019-03-17 05:36 | NUR ---
ASSUMED CARE ON 03/16/19 @ 19:25, IN BED HEAD OF BED ELEVATED 30DEGREES, OXYGEN VIA NC @ 2L. RESPIRATIONS EVEN AND UNLABORED. EXTREMITIES WARM AND PINK. @ BEDSIDE. EYES CLOSED, MOUTH OPEN. ORAL CARE PROVIDED. @ 21:45 ORAL CARE PROVIDED, 2 DROPS OF ATROPIN PROVIDED. ATIVAN INTENSOL 0.5 PROVIDED, MORPHINE 5MG PROVIDED ORALLY. EYES CLEANED AND EYE DROPS PROVIDED. OXYGEN INCREASED TO 2 1/2 L. REPOSITIONED IN BED @ 0030 UPPER RESPIRATORY MUCUS AUDIBLE NOTED ON INHALLATION TO BREATHING. REPOSITIONED AND ATROPINE PROVIDED. @ 0400, REPOSITIONED, MORPINE 10MG AND ATIVAN INTENSOL PROVIDED WELL ATROPINE. NO URINE OUTPUT NOTED. EXTREMITIES WARM AND PINK. CONTINUES WITH MOUTH OPEN AND OXYGEN @ 2 1/2L VIA N/C. EYES CLOSED. CONTINUES @ BEDSIDE. BED IN LOW POSITION, BED ALARM SET.
[2019-03-17 09:22] VITALS: BP 158/76
[2019-03-17 10:47] VITALS: BP 158/76
--- NOTE | 2019-03-17 13:10 | NUR ---
0715 RESUMMED CARE FROM OVERNIGHT SHIFT, PATIENT IS ON PALLATIVE CARE. NEDICATION GIVEN ORALLY, NO VITALS OR MEALS FOR PATIENT, TURN PATIENT EVERY 2 HOURS. PATIENT IS RESTING COMFORTABLY, WILL CONTINUE TO MONITOR PATIENT.
--- NOTE | 2019-03-17 14:31 | NUR ---
Sherri met with pt spouse to offer support. Pt is expected to pass away while on this unit.
--- NOTE | 2019-03-18 20:55 | D ---
[facility] [place] [address] DISCHARGE SUMMARY Name: VIVIEN TOM Room #: 523B-B DIS IN M.R.#: [id number] Admission: 03/06/19 Attend Phys: Jerzy Dave DO Discharge: 03/17/19 Date of : [birth year] Report #: [id number] THIS REPORT FOR: cc: IMANI - Family physician unknown FAM - Family physician unknown Jerzy Dave DO ~ THIS REPORT FOR: //name// CC: Jerzy DIALLO unknown DATE OF SERVICE: 03/17/2019 INPATIENT ATTENDING PHYSICIAN: Jerzy Dave DO. INDUSTRIAL PHARMACIST: Shraddha Rocha M.D. Also, assisting with this case was our chief of production, Dr. Aidan Arroyo. 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 Comfort care status was expected in the next couple of days. DISCHARGE PLAN: The patient is discharged into the medical floor at [facility] to provide a more comfort care atmosphere for the patient and his family. DISCHARGE MEDICATIONS: Will strictly be the palliative care protocol, which includes the Roxanol, the atropine, the Ativan Intensol. I did place a q.72 hours' scopolamine patch one today when he was on the Geriatric Psych Unit to help with secretion minimization. Patient can also be on oxygen for comfort on the medical floor that was significant when the patient on the Geriatric Psych Unit due to ligature risk, but the patient does say that rather a sister come into his room at times. Otherwise, the patient is n.p.o., again was pending . REASON FOR ADMISSION: Back in late February was indeed a different picture of sorts. Apparently, the patient had been at a halfway down in [place], [place], naked, urinating inappropriately, cursing and combative, so we agreed to try and help him. HOSPITAL COURSE: The patient was admitted to Geriatric Psychiatry Unit. The patient unfortunately had a deteriorating course with poor improvement. He would either be overly sedated or argumentative, combative. He began the pattern roughly 3-4 days ago of poor intake. Dr. Rocha, the hospitalist and I [facility] [address] [place] [address] DISCHARGE SUMMARY Name: VIVIEN TOM Room #: 523B-B DIS IN M.R.#: [id number] Admission: 03/06/19 Attend Phys: Jerzy Dave DO Discharge: 03/17/19 Date of : [birth year] Report #: [id number] conferred again with the patient's 's decision maker and they did not want undergoing laboratory work, intravenous fluids, etc., so at the beginning of this admission, he also had a history of significant heart disease. His QTc was 600, which did decrease on followup EKG, but he has a number of risk factors including left bundle-branch block, which is chronic. The patient is nonverbal and essentially comatosed, so I came and interviewed him. PHYSICAL EXAMINATION: VITAL SIGNS: Today, temperature is 37.2, pulse 74, respiratory rate 21, BP 158/76, O2 sat 94%. MENTAL STATUS EXAMINATION: Unconscious and unresponsive to pain. At times, tachypneic, which was treated with Roxanol. Unable to ascertain the thought process as well as content, etc. Memory impaired, insight impaired, judgment impaired. PROGNOSIS: For this patient is terminal and I will be happy to follow him for comfort care. He is on purposes on the medical floor at Dr. Arroyo, the covering hospitalist requests. at least 45 minutes spent on discharge activities including coordinating patients move to 4th floor of hospital for comfort care <ELECTRONICALLY SIGNED> By: Jerzy Dave DO 03/18/19 2055 [id number] Jerzy Dave DO /nt
--- NOTE | 2019-03-23 12:41 | EKG ---
[facility] [place] [address] ELECTROCARDIOGRAM REPORT Name: VIVIEN TOM Room #: [facility] DIS IN M.R.#: [id number] Admission: 03/06/19 Attend Phys: Jerzy Dave DO Discharge: 03/17/19 Date of : [birth year] Report #: [id number] THIS REPORT FOR: cc: IMANI - Family physician unknown FAM - Family physician unknown Fredo Ramey MD [facility] ~ THIS REPORT FOR: //name// [facility] Test Date: 2019-03-11 Test Time: 13:39:02 Pat Name: VIVIEN TOM Department: Room: [facility] Gender: M [employer]: Pipo SAHU : 1930 Requested By: Jerzy Dave Order Number: [id number] MD: Fredo Ramey Measurements Intervals [place] Rate: 65 P: 28 IA: 215 QRS: -49 QRSD: 157 T: 150 QT: 452 QTc: 470 Interpretive Statements Sinus rhythm Borderline prolonged IA interval Left bundle branch block Compared to ECG 03/07/2019 10:02:02 No significant changes Electronically Signed On 03-12-2019 9:36:41 [employer] by Fredo Ramey [email or web address] <ELECTRONICALLY SIGNED> By: Fredo Ramey MD, [facility] 03/12/19 [id number] Fredo Ramey MD, [facility] /EPI
== END 2019-03-17 15:57 | DRG 57 ==
LOC: ER 16:22 → SBH 19:01 → EROBS 19:01 → SBH 19:27
PROVIDERS: Hospitalist; Internal Medicine; Physician Assistant; ADMIT Psychiatry & Neurology Psychiatry
DX: G30.9 Alzheimer's disease, unspecified (principal); F01.51 Vascular dementia, unspecified severity, with behavioral disturbance; N17.9 Acute kidney failure, unspecified; N18.9 Chronic kidney disease, unspecified; F02.81 Dementia in other diseases classified elsewhere, unspecified severity, with behavioral disturbance; E11.22 Type 2 diabetes mellitus with diabetic chronic kidney disease; R13.10 Dysphagia, unspecified; Z66 Do not resuscitate; E86.0 Dehydration; I25.10 Atherosclerotic heart disease of native coronary artery without angina pectoris; Z51.5 Encounter for palliative care; Z86.73 Personal history of transient ischemic attack (TIA), and cerebral infarction without residual deficits; Z86.718 Personal history of other venous thrombosis and embolism; Z95.5 Presence of coronary angioplasty implant and graft; Z86.711 Personal history of pulmonary embolism; I25.2 Old myocardial infarction; Z95.828 Presence of other vascular implants and grafts; Z88.6 Allergy status to analgesic agent; Z88.8 Allergy status to other drugs, medicaments and biological substances; Z82.49 Family history of ischemic heart disease and other diseases of the circulatory system
CPT/HCPCS: 10880

== ENCOUNTER 2019-03-17 18:07 | Inpatient (IN) | payer OTHER ==
[~2019-03-17 18:07] MED LIST: CLARITIN10 M3 PO; COLACE 2-IN-11 EACH PO; FOLIC ACID1 MG PO; HYDRALAZINE 10M10 MG PO; IMDUR 60 MG TAB60 M1 PO; LASIX 40 MG TAB40 MG PO; LIPITOR40 MG PO; MELATONIN3 M1 PO; METFORMIN HCL500 M3 PO; MIRALAX119 GM PO; NAPROSYN500 MG PO; NORVASC 2.5 MG2.5 M1 PO; PLAVIX 75 MG TA75 MG PO; PROAIR HFA8.5 GM INH; PROTONIX40 M2 PO; RANEXA1000 MG PO; TRAZODONE HCL100 MG PO; TYLENOL PM EX-1 EACH PO; ULTRAM 50MG TAB50 MG PO; ZYPREXA2.5 MG PO
[2019-03-17 23:00] VITALS: BP 158/76
[2019-03-18 04:27] VITALS: BP 149/68
--- NOTE | 2019-03-18 06:34 | NUR ---
RECEIVED PT ON BED SLEEPING WITH FAMILY AT BEDSIDE. DISORIENTED X 4. DOES NOT OPEN EYES SPONTANEOUSLY. DOES NOT FOLLOW ANY VERBAL COMMANDS. PT ON COMFORT CARE. ORDERS WERE RECEIVED FROM AND EKTA,HAY RAKE OPERATOR OIL FIELD OPERATOR FOR TILLY. SHADOWGRAPH OPERATOR PER MD ORDER. ABNORMAL TEMPERATURE DISCUSSED WITH HAY RAKE OPERATOR OIL FIELD OPERATOR. PER HAY RAKE OPERATOR, LONG PT'S REPIRATORY STATUS IS MAINTAINED, CONT TO MONITOR. LFA HEALING ABRASION DRESSED. CONSENTS SIGNED BY FAMILY. O2 FOR COMFORT. WILL CONT TO MONITOR FOR ANY CHANGES IN CONDITION.
[2019-03-18 08:00] VITALS: BP 136/47
--- NOTE | 2019-03-18 10:37 | NUR ---
Received asleep on bed; disorientedx4, unable to open eyes spontaneously. On O2 at 2lpm via nasal cannula. Vital signs stable, with temperature elevation but third shift lieutenant nurse addressed it with FELT CEMENTER already. Comfort care ordered; pt turned regularly, mouth care done. With daughter and at bedside. On nothing per orem. With skin tear at R FA- dressing in place, C/D/I.
--- NOTE | 2019-03-18 14:34 | NUR ---
PT ADMITTED RELATED TO COMFORT CARE. PT HAD BEEN ON [facility] [employer] [facility]. PT CAME DOWN YESTERDAY ON COMFORT CARE. CM MET WITH PT'S , DTR, AND GDTR AT BEDSIE THIS AM AND DISCUSSED HOSPICE HOUSE EVAL OR LTC FACILITY WITH HOSPICE. FAMILY INDICATED THAT THIS WAS THE FIRST THEY HEARD OF THIS, THAT THEY THOUGHT PT WOULD REMAIN HERE UNTIL HE PASSED. CM NOTIFIED PHYSICAIN. SHE IS TO FOLLOW UP WITH THEM. CM PROVIDED LIST OF LTC FACILITIES WITHIN [address] OF [place], [place] WHERE THEY LIVE. [facility]. [facility] IS ON LICENSE OF [facility] WHICH IS 56 [address] FROM THEIR HOME. CM TO FOLLOW INDICATED WITH DC PLANNING.
--- NOTE | 2019-03-18 15:21 | NUR ---
SPIRITUAL CARE CONSULT [id number] WAS COMPLETED BY THIS SPRAYER HAND.
[2019-03-18 15:48] VITALS: BP 139/66
[2019-03-18 19:01] VITALS: BP 145/61
--- NOTE | 2019-03-19 04:44 | NUR ---
PROGRESS PT AWAKENS WITH CARES, NO VERBAL RESPONSES NOTED. NO SIGNS OF PAIN PT SEEMS TO BE RELAXED WITH NO GRIMACING WITH TURNS. APPEARS TO ENJOY ORAL CARE DOES CHEW AND SUCK ON THE ORAL SWABS. SKIN CLEAN DRY AND INTACT EXCEPT FOR SKIN TEAR THAT IS COVERED ON LEFT FOREARM AND A FEW SCATTERED SCABS ON RIGHT AND LEFT FOREARM. INCONTINENT OF SONYA COLORED URINE IN ADEQUATE AMOUNTS. VSS. SPOUSE AT BEDSIDE. TURNING Q2HRS HEELS FLOATED. CONTINUE TO MONITOR.
[2019-03-19 07:08] VITALS: BP 144/59
--- NOTE | 2019-03-19 10:06 | NUR ---
Received awake on bed. With O2 at 2lpm via nasal cannula. On nothing per orem; mouth care done. No IV noted. With skin tear at R FA- dressing in place. Pt turned regularly on his sides. Incontinent of bowel and bladder- checked frequently and changed as needed. On comfort care. Pt able to open eyes, moans during turning. With relatives at bedside. Still awaiting family decision re: hospice house or placement with hospice care.
[2019-03-19] MEDS ORDERED: MSL20MG/ML SUBLING (10:12)
[2019-03-19] MEDS ORDERED: LORAZEPAM 2MG2 MG/M1 PO (10:12)
[2019-03-19 15:07] VITALS: BP 159/70
[2019-03-19 19:11] VITALS: BP 150/63
--- NOTE | 2019-03-20 08:31 | NUR ---
progress vss, pt slept most of shift started moaning and trying to talk around 3 morphine given with some effect, incontinent of large amounts of urine x 4 bed bath given pt repositioned and oral care provided q2hrs. spouse at bedside continue to monitor.
[2019-03-20 16:07] VITALS: BP 128/65
--- NOTE | 2019-03-20 17:28 | NUR ---
Comfort care. Patient nasal cannual is raised to 4L; Patient had fever, tylenol given and worked. Pain medication given.
--- NOTE | 2019-03-20 18:12 | HC ---
[facility] [place] [address] CONSULTATION Name: VIVIEN TOM Room #: 449-I ADM IN M.R.#: [id number] Admission: 03/17/19 Attend Phys: Shraddha Rocha MD Discharge: Date of : [birth year] Report #: [id number] THIS REPORT FOR: cc: IMANI - Family physician unknown FAM - Family physician unknown Jerzy Dave DO ~ CC: Jerzy DIALLO unknown DATE OF SERVICE: 03/18/2019 The patient was previously on [facility], transferred to the [address] [place] [address] for comfort care. The patient is actively dying, end of life. I will not bill for this visit with the patient. PRIMARY TEAM ATTENDING: Dr. Rocha. CONSULTING PSYCHIATRIST: Jerzy Dave DO. REASON FOR ADMISSION: Consultation for comfort palliative care. HISTORY OF PRESENT ILLNESS: This is an 89-year-old male that was previously admitted for over a week to the [facility]. The patient stopped eating and drinking. Discussed with the family aggressive intervention, elected to go comfort care. The patient has been maintaining stable vital signs and the patient had a large family. Geriatric Psych Unit were not ideal surroundings for end-of-life care, so I made a decision in consultation with Dr. Aidan Arroyo as well as the gauger chief delivery, Trini Lenz, to facilitate the patient being moved to the Med/Surg Unit. Here, the patient was seen this morning, supine, resting comfortably, respiratory rate in the 18-20 range. The palliative care protocol has been ordered for him, which includes Roxanol, atropine and Ativan Intensol. The patient is nonverbal. 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 PAST SURGICAL HISTORY: The patient's surgery is noncontributory, unable to obviously obtain questioning as patient is comatose. ALLERGIES: ASPIRIN, EZETIMIBE, HYDROCODONE, CARISOPRODOL. PHYSICAL EXAMINATION: Nonambulatory, bedridden. [facility] [address] [place] [address] CONSULTATION Name: VIVIEN TOM Room #: 449-I ADM IN M.R.#: [id number] Admission: 03/17/19 Attend Phys: Shraddha Rocha MD Discharge: Date of : [birth year] Report #: [id number] MENTAL STATUS EXAMINATION: This is a well-developed male, on oxygen, supine, shut. Attention and concentration all impaired. Speech: Nonverbal. Unable to ascertain thought process or thought content. Memory known to be impaired. Insight impaired. Judgment impaired. Fund of knowledge well below average. FORMULATION: An 89-year-old male admitted to Med/Surg for comfort care, history of dementia with Alzheimer's vascular contribution. PLAN: Continue palliative care protocol. The morphine can be adjusted to every half hour if pain is not adequately controlled with every hour. Also, the patient is end-stage major neurocognitive disorder due to Alzheimer's disease. Family elects comfort care. Expected end-of-life in the next few days, would like to thank my colleagues and nursing service for accepting care of the patient. I will be off call this weekend, but will be available on 03/21/2019, for further assistance. <ELECTRONICALLY SIGNED> By: Jerzy Dave DO 03/20/19 1812 [id number] [id number] Jerzy Dave DO /nt
[2019-03-20 21:58] VITALS: BP 136/79
[2019-03-21 08:00] VITALS: BP 145/60
--- NOTE | 2019-03-21 08:37 | NUR ---
PROGRESS PT ON COMFORT CARE REPOSITIONED Q2HRS, ORAL CARE Q2HRS AND PRN PT O2 UP TO 10 LITERS VIA NASAL CANNULA HUMIDITY ADDED PT MOANED A LITTLE MORE LAST NIGHT AND MORPHINE GIVEN X 1 TEMP UP TO 103.8 TYLENOL SUPPOSITORY GIVEN WITH SOME EFFECT TEMP DOWN TO 100.6, BED BATH GIVEN FOR COMFORT ICEPACKS APPLIED TO ARMPITS AND GROIN REPOSITIONED WITH PILLOWS PT WOULD GO BACK TO SLEEP AFTER CARE. PT'S LABOR OF BREATHING IN INCREASING AND SATS ARE DROPPING SKIN REMAINS WARM DRY INTACT AND PINK MUCOUS MEMBRANES SLIGHTLY DRY. SPOUSE AT BEDSIDE CONTINUE TO MONITOR.
--- NOTE | 2019-03-21 16:37 | NUR ---
DISCHARGE PLANNING. CUSTODIAL CARE WITH HOSPICE RECOMMENDED AT DISCHARGE VERSUS HOSPICE DOE RUN PLACEMENT. PATIENT REFERRAL [facility]ED TO [facility] PER REQUEST. CALL PLACED TO [facility]. SPOKE WITH ADMISSIONS LIAISON. LIAISON STATES [facility] DOES NOT HAVE ANY LTC BEDS AVAILABLE AT THIS TIME. PATIENT REFERRAL FAXED TO HOSPICE HOUSE PER REQUEST. CALL PLACED TO [facility] ASSOCIATE PROFESSOR OF BIOSTATISTICS TO NOTIFY. AWAITING RESPONSE.
--- NOTE | 2019-03-21 16:47 | NUR ---
CM FOLLOWED UP WITH PT'S FAM THIS AFTERNOON. THEY ASKED THAT REFERRAL BE SENT TO [facility] FOR REVIEW FOR POSSIBLE LTC WITH HOSPICE ADMISSION. THEY DON'T HAVE LTC BEDS. THEY ASKED THAT REFERRAL BE SENT TO [facility] FOR EVAL FOR POSSIBLE ADMISSION TO [facility]. [facility] FORM PUT IN PAYABLE MANAGER IF HOSPICE CAN ACCEPT IT WILL NEED TO BE COMPLETED AND FAXED. CM TO FOLLOW INDICATED WITH DC PLANNING.
--- NOTE | 2019-03-21 19:06 | NUR ---
Assumed pt care this am , pt is on comfort care . As per Dr. Rocha VS are not to be taken not is the fever suppose to be addressed and questioned why this was being done. Informed Dr. Rocha there are no orders for what she stated and will need to put this in. Mile care given once, nasal cannula on at 5l per O2 via NC, agonal breathing is noted. Comfort care done. Endorsed to the night nurse.
[2019-03-21 19:25] VITALS: BP 128/114
--- NOTE | 2019-03-22 02:08 | NUR ---
ASSUMED PT CARE AROUND 193. UNRESPONSIVE ON COMFORT CARE. FAMILY AT BEDSIDE AT ALL TIMES. MEDS ADMIN PER MD ORDER. AROUND 0115, FAMILY CALLED TO NURSING STATION ASKING TO EVALUATE PT. NO CAROTID PULSE, NO HR TO AUSCULTAION. VERIFIED BY SECOND RN. JOSE S[employer] PLANT GENERAL MANAGER FOR NOTIFIED. HOUSE MARIBEL GILMAN NOTIFIED. MTN NOTIFIED. PT IS NOT A DONOR. FUNRAL HOME [facility] NOTIFIED AND ON ROUTE TO P/U PT. ALL BELONGINGS SENT WITH PT'S FAMILY INCLUDING CLOTHES AND DENTURES. POST MORTUM CARE COMPLETED, PLACED IN A BODY BAG. AWAITING RELEASE OF THE REMAINS TO THE HOME AT THIS TIME.
== END 2019-03-22 01:16 | DRG 683 ==
LOC: 4W 18:07
PROVIDERS: ADMIT Psychiatry & Neurology Psychiatry
DX: N17.9 Acute kidney failure, unspecified (principal); F01.51 Vascular dementia, unspecified severity, with behavioral disturbance; F02.81 Dementia in other diseases classified elsewhere, unspecified severity, with behavioral disturbance; R64 Cachexia; G30.9 Alzheimer's disease, unspecified; Z51.5 Encounter for palliative care; I25.10 Atherosclerotic heart disease of native coronary artery without angina pectoris; E78.5 Hyperlipidemia, unspecified; M19.90 Unspecified osteoarthritis, unspecified site; E11.22 Type 2 diabetes mellitus with diabetic chronic kidney disease; N18.9 Chronic kidney disease, unspecified; F02.80 Dementia in other diseases classified elsewhere, unspecified severity, without behavioral disturbance, psychotic disturbance, mood disturbance, and anxiety; R29.6 Repeated falls; I44.7 Left bundle-branch block, unspecified; M06.9 Rheumatoid arthritis, unspecified; F01.50 Vascular dementia, unspecified severity, without behavioral disturbance, psychotic disturbance, mood disturbance, and anxiety; Z66 Do not resuscitate; I12.9 Hypertensive chronic kidney disease with stage 1 through stage 4 chronic kidney disease, or unspecified chronic kidney disease; R13.10 Dysphagia, unspecified; Z95.5 Presence of coronary angioplasty implant and graft; Z86.73 Personal history of transient ischemic attack (TIA), and cerebral infarction without residual deficits; Z86.718 Personal history of other venous thrombosis and embolism; Z79.01 Long term (current) use of anticoagulants; Z95.828 Presence of other vascular implants and grafts; Z88.5 Allergy status to narcotic agent; Z88.8 Allergy status to other drugs, medicaments and biological substances; Z87.891 Personal history of nicotine dependence; Z79.899 Other long term (current) drug therapy
CPT/HCPCS: 10047